=== PATIENT | female | born 1970 | race Caucasian/White ===

== ENCOUNTER 2023-09-28 11:43 | Outpatient (REF) | payer OTHER, SELFPAY | END 2023-09-28 11:44 | disposition home or self-care (01) | LOC: HO.XRAY 11:43 | PROVIDERS: PCP Internal Medicine; Visit Provider Internal Medicine | DX: S69.91XD Unspecified injury of right wrist, hand and finger(s), subsequent encounter (principal) | CPT/HCPCS: 73110 ==

== ENCOUNTER 2025-04-15 15:54 | Outpatient (AMB) | payer OTHER, SELFPAY ==
--- NOTE | 2025-04-15 15:55 | MHC.PC.OV ---
Vital Signs 04/15/25 15:58 04/15/25 15:58 04/15/25 16:34 Height 5 ft 6 in Weight 79.379 kg BP 144/78 H 150/80 H Blood Pressure Location Lt brachial Position Sitting Respiration 17 Pulse 77 Pulse Source Pulse Oximeter Temp 97.9 F Temp Source Temporal Artery Scan Pulse Oximetry (%) 98 Oxygen Delivery Method Room Air Intake Visit Reasons: Shingles-AFC Urgent care Veterinary Laboratory Technician Required: No Accompanied by: Self / Same As Patient Allergies No Known Allergies Allergy (Verified 04/15/25 15:55) Medication List - Last Reconciled 04/15/25 by AURA Aparicio buspirone 7.5 mg PO BID escitalopram oxalate 20 mg PO BEDTIME lamotrigine 150 mg PO BID lisinopril 10 mg PO DAILY lorazepam 0.5 - 1 mg PO BID PRN trazodone 25 - 50 mg PO BEDTIME PRN valacyclovir 1,000 mg PO TID HPI HPI Comments History of Present Illness Details 54-year-old male with history of bipolar disorder, history of cervical cancer presents to the office today for follow-up on herpes zoster as well as annual physical exam. She currently lives at home with her and daughter and feels safe there. She does follow a healthy diet and exercises with brisk walking. Has lost 35 lb intentionally. She denies any alcohol use, history of cigarette smoking, illicit drug use or marijuana use. 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 Bipolar vaobdbzo-WUR-9 score 0 and guilherme 7 score 0. Follows with Psychiatry as well as counselor. Stable on BuSpar, Lexapro, lamotrigine, trazodone, and lorazepam as needed. Denies any nicholas or depressive symptoms. No SI/HI. History of cervical cancer-s/p cone. Does not have tool maker established anymore Concerns: Diagnosed with herpes zoster yesterday at urgent care. Developed a rash about 1 week ago affecting the right side of the face not including V1 distribution extending to the scalp and neck. She does also experience some tingling in the right upper extremity. There is sharp stabbing sensations along the rash. No prior history of shingles. Has not been vaccinated. Was prescribed Valtrex at the urgent care but has not yet started this. She was not given anything for pain management but states the pain is so severe at times it causes her to cry. Right posterior knee pain-ongoing for some time. Pain is primarily when she is kneeling or seated cross legged. No pain with ambulation or on stairs. Denies any weakness or injury. Reports ice helps. Last menstrual period was 14 months ago. However last week, developed heavy bleeding which she has gotten in the past with intercourse but then occurred last week without any trigger. Health maintenance: Overdue for mammogram Overdue for Pap smear-[facility] but has not established with other tool maker Due for colonoscopy Past medical, social, family, surgical history reviewed ROS: General: No fevers, malaise, unintentional weight loss HEENT: No blurred vision, diplopia. No sore throat, nasal congestion, rhinorrhea, sinus pain, ear pain. No hearing loss Neck - no adenopathy Cardiovascular: No chest pain, palpitations, or leg edema Respiratory: No shortness of breath, wheezing, cough Breast: No pain, palpable lumps, nipple inversion GI: No dysphagia, odynophagia, globus sensation. No abdominal pain, nausea, vomiting, diarrhea, constipation, melena, hematochezia : No dysuria, hematuria, increased urinary frequency, decreased urinary output. PATTERN PAINTER: See HPI MSK: No myalgia, back pain. See HPI Neuro: No headaches, weakness, paresthesias Psych: no depression/anxiery. No AH/VH. No SI/HI Skin: See HPI EXAM: Constitutional - Awake and Alert, No apparent distress Eyes - PERRLA, EOMI. Anicteric Ears - external ears normal, canals clear, TMs intact and pearly crandall with good cone of light Nose- septum midline, nares clear, no sinus tenderness Mouth/throat- mucosa moist, tongue and uvula midline, no erythema/edema or tonsillar adenopathy. Neck-trachea midline, thyroid symmetric without palpable nodules, no adenopathy Cardiovascular - S1S2, RRR, No edema Respiratory - Normal lung expansion, Normal respiratory effort, No respiratory distress, CTA bilaterally Gastrointestinal - NT / ND; +BS; No rebound or guarding - No CVA tenderness Extremities - no calf tenderness bilaterally, no swelling Musculoskeletal - Normal inspection, normal ROM Skin - Warm/Dry. Vesicular rash on erythematous base along the V3 distribution of the trigeminal nerve Neurological - Alert & oriented x3, CN II-XII in tact, 5/5 strength BUE and BLE, 2+ patellar reflexes, sensation intact Psychological - Appropriate affect [facility] Medical History (Updated 04/15/25 @ 17:07 by AURA Aparicio) Hypertension Post-menopausal bleeding Hx of cervical cancer Solitary bone cyst of pelvis Herpes zoster Bipolar 2 disorder Surgical History (Updated 04/15/25 @ 16:13 by AURA Aparicio) S/P tubal ligation S/P tonsillectomy Family History (Updated 04/15/25 @ 16:21 by AURA Aparicio) Maternal Grandmother Ovarian cancer Stroke Paternal Grandfather CAD (coronary artery disease) Paternal Grandmother CHD (congenital heart disease) Questionnaire PHQ-9 Over the last 2 weeks, how often have you been bothered by any of the following problems? 1. Little interest or pleasure in doing things: not at all 2. Feeling down, depressed, or hopeless: not at all 3. Trouble falling or staying asleep, or sleeping too much: not at all 4. Feeling tired or having little energy: not at all 5. Poor appetite or overeating: not at all 6. Feeling bad about yourself - or that you are a failure or have let yourself or your family down: not at all 7. Trouble concentrating on things, such as reading the newspaper or watching television: not at all 8. Moving or speaking so slowly that other people could have noticed. Or the opposite - being so fidgety or restless that you have been moving around a lot more than usual: not at all 9. Thoughts that you would be better off or of hurting yourself in some way: not at all Total score: 0 Depression Screening Interpretation: Negative Depression Screening Done: Yes 78721 - PHQ-9 Billing: Yes Source: Developed by Drs. Sixto Hernandez, Julia Newby, Ari Hahn and colleagues, with an educational kieran from [employer]. GUILHERME-7 AMB Questionnaire GUILHERME-7 Feeling nervous, anxious, or on edge: 0 = Not at all Not being able to stop or control worryin = Not at all Worrying too much about different things: 0 = Not at all Trouble relaxin = Nearly every day Being so restless that it is hard to sit still: 0 = Not at all Becoming easily annoyed or irritable: 0 = Not at all Feeling afraid as if something awful might happen: 0 = Not at all Total GUILHERME-7 score (0-4 normal; 5-9 mild; 10-14 moderate; 15-21 severe): 3 Source: Developed by Drs. Sixot Hernandez, Julia Newby, Ari Hahn and colleagues, with an educational kieran from [employer]. GUILHERME-7 Assessment Billing GUILHERME-7 Assessment Tool: GUILHERME-7 Assessment 10080 Physical exam (Primary Care) Vital Signs: Last Vital Signs Temp 97.9 F 04/15/25 15:58 Pulse 77 04/15/25 15:58 Resp 17 04/15/25 15:58 BP 150/80 H 04/15/25 16:34 Pulse Ox 98 04/15/25 15:58 Oxygen Delivery Method Room Air 04/15/25 15:58 PHQ-9: PHQ-9 Score PHQ-9: Total score 0 04/15/25 16:26 Depression Screening Interpretation: Negative Coding Level of Care Code Est Pt Level 4 (20268) New Pt Prev Care 40-64y(31531) Diagnoses Routine medical exam Z00.00 Herpes zoster B02.9 Posterior right knee pain M25.561 Post-menopausal bleeding N95.0 Bipolar 2 disorder F31.81 Hypertension I10 Additional Codes GUILHERME-7 Assessment Billing - GUILHERME-7 Assessment Tool: GUILHERME-7 Assessment 46141 ([id number]) PHQ-9 - 95380 - PHQ-9 Billing: Yes ([id number]) Assessment & Plan Assessment & Plan (1) Routine medical exam: Code(s): Z00.00 - Encounter for general adult medical examination without abnormal findings Plan: 54-year-old female presenting for annual physical exam. Has not been evaluated in several years. New patient to the office. Plan as below (2) Herpes zoster: Code(s): B02.9 - Zoster without complications Category: Medical Plan: Urgent care notes reviewed. Advised to initiate Valtrex 1000 mg t.i.d.. She is also given prednisone taper as well as gabapentin 300 mg at night. She can also use tramadol as needed for breakthrough pain. Advised to get Shingrix (3) Posterior right knee pain: Code(s): M25.561 - Pain in right knee Category: Medical Plan: X-ray of the right knee is ordered. She is referred to Orthopedic surgery for further evaluation and management. Can use ibuprofen as needed for pain as well as ice. (4) Post-menopausal bleeding: Code(s): N95.0 - Postmenopausal bleeding Category: Medical Plan: Referred to tool maker for further evaluation and management as patient's last menstrual period was 14 months ago and should not still be experiencing bleeding at this time. She is also referred for routine screenings given cancer history. Will evaluate CBC given bleeding (5) Bipolar 2 disorder: Code(s): F31.81 - Bipolar II disorder Category: Medical Plan: Stable. Continue following with Psychiatry and continue medications as ordered (6) Hypertension: Code(s): I10 - Essential (primary) hypertension Category: Medical Plan: New onset. Prescribed lisinopril 10 mg daily. Educated on dosing and side effects. Follow-up in the office in 2-3 weeks for blood pressure recheck. Low-sodium diet Plan Routine screening labs as ordered below Referred for screening mammogram, Pap smear, colonoscopy Continue following for annual skin exams and use sun protection Annual eye exams Wear seat belt in car Recommend regular exercise and healthy diet Orders: Orders Basic Metabolic Panel Today Z00.00 - Encounter for general adult medical examination without abnormal findings Complete Blood Count Auto Diff Today Z00.00 - Encounter for general adult medical examination without abnormal findings Liver Panel Today Z00.00 - Encounter for general adult medical examination without abnormal findings Vitamin D 25-OH Total Today Z00.00 - Encounter for general adult medical examination without abnormal findings XR knee RT 3V Today M25.561 - Pain in right knee MM tomosynthesis screening BI Today Z12.31 - Encounter for screening mammogram for malignant neoplasm of breast Hemoglobin A1c Today Z00.00 - Encounter for general adult medical examination without abnormal findings Lipid Panel Today Z00.00 - Encounter for general adult medical examination without abnormal findings Referrals Gastroenterology Referral Z12.11 - Encounter for screening for malignant neoplasm of colon AUTOMOTIVE MACHINIST Referral N95.0 - Postmenopausal bleeding Orthopedics Referral M25.561 - Pain in right knee Medications: New lisinopril 10 mg PO DAILY 90 tabs 1RF prednisone see taper instructions; 40 mg Daily x3 days, 30 mg daily x3 days, 20 mg daily x3 days, 10 mg daily x3 days 10 mg PO DIRECTED 30 tabs 0RF gabapentin 300 mg PO BEDTIME 14 caps 0RF tramadol 50 mg PO Q8H PRN 30 tabs 0RF pain
[2025-04-15 15:58] VITALS: BP 144/78; PULSE 77; RESP 17; TEMP 36.6; O2SAT 98
--- OUTSIDE RECORDS SUMMARY | 2025-04-15 16:08 | XMS_ITS | Patient Health Record ---
Author Organization [facility] Address [address] [place] [address] Care Team Providers Care Mileage Clerk Name Role Phone STEVAN VELEZ Unavailable [phone] Reason For Referral No Information Plan Of Treatment Next Appt Details Provider Name:Yael douglas, 09/10/2025 09:20:00 AM, [address], [address], [place], [address], Insurance Providers Payer Name Payer Address Payer Phone Subscriber Number Group Number Insured Name Patient Relationship to Insured Coverage Start Date Coverage End Date [facility] [address] [facility] [place] [id number] [phone] BRETT JEAN Self - patient is the insured
[2025-04-15 16:34] VITALS: BP 150/80
== END 2025-04-15 16:36 | disposition home or self-care (01) ==
LOC: HO.HMCHD 15:54
PROVIDERS: PCP Physician Assistant; Visit Provider Physician Assistant
DX: Z00.00 Encounter for general adult medical examination without abnormal findings (principal); B02.9 Zoster without complications; F31.81 Bipolar II disorder; M25.561 Pain in right knee; N95.0 Postmenopausal bleeding; I10 Essential (primary) hypertension

== ENCOUNTER → 2025-04-15 15:54 | Outpatient (BNVA) | payer OTHER, SELFPAY | PROVIDERS: PCP Internal Medicine; Visit Provider Physician Assistant | DX: Z00.00 Encounter for general adult medical examination without abnormal findings (principal); B02.9 Zoster without complications; M25.561 Pain in right knee; N95.0 Postmenopausal bleeding; F31.81 Bipolar II disorder; I10 Essential (primary) hypertension | CPT/HCPCS: 96127 ==

== ENCOUNTER 2025-05-06 14:23 | Outpatient (REF) | payer OTHER, SELFPAY | END 2025-05-06 14:24 | disposition home or self-care (01) | LOC: HO.LNP 14:23 | PROVIDERS: PCP Physician Assistant; Visit Provider Obstetrics & Gynecology | DX: N84.1 Polyp of cervix uteri (principal); N95.0 Postmenopausal bleeding; Z12.31 Encounter for screening mammogram for malignant neoplasm of breast; Z11.51 Encounter for screening for human papillomavirus (HPV); Z98.51 Tubal ligation status | CPT/HCPCS: 57500; 87626; 88175; 88305 ==

== ENCOUNTER 2025-05-06 14:23 | Outpatient (AMB) | payer OTHER, SELFPAY ==
[2025-05-06 14:27] VITALS: BP 144/88; BMI 28.4
--- NOTE | 2025-05-06 14:27 | MHC.OFFVIS ---
Vital Signs 05/06/25 14:27 Height 5 ft 6 in Weight 176 lb BMI 28.4 BP 144/88 H Intake Visit Reasons: PMB Treasury Consultant Required: No Supervisor Sterile Processing: Supervisor Sterile Processing Present (justino) Accompanied by: Self / Same As Patient Allergies No Known Allergies Allergy (Verified 05/06/25 14:28) HPI Comments Details: Presenting with 3 episodes of postmenopausal bleeding the 1st 1 was post coital followed by 2 separate episode not related to coitus. Last Pap smear in 08/21 was negative Last mammogram was 16 years ago was negative no records available [facility] Medical History (Updated 05/06/25 @ 14:55 by Amos Anders MD) Hypertension Post-menopausal bleeding Hx of cervical cancer Solitary bone cyst of pelvis Herpes zoster Bipolar 2 disorder Surgical History (Updated 05/06/25 @ 14:55 by Amos Anders MD) History of loop electrical excision procedure (LEEP) S/P tubal ligation S/P tonsillectomy Family History Maternal Grandmother Ovarian cancer Stroke Hypertension Paternal Grandfather CAD (coronary artery disease) Paternal Grandmother CHD (congenital heart disease) Mother Hypertension Social History Household Members: Spouse and Children Housing: House Alcohol intake: current Comment: socially Patient Tobacco Use Status: Never used Tobacco service: No Current occupational status: employed Current occupation: [employer] Sexually active: Yes Sexual orientation: Straight/Heterosexual Gender identity: Female Female Reproductive History Menstrual Age of Menarche: 12 Total pregnancies: 3 Full term: 2 Premature: 2 Number of Living Children: 2 Ab induced: 1 History of abnormal pap smear: Yes (2004) History of abnormal mammogram: No Review of Systems Const All systems reviewed & are unremarkable except as noted in HPI and below Card Reports as per HPI Resp Reports as per HPI GI Reports as per HPI and Reports no additional complaints Reports as per HPI Physical Exam Vital Signs: Last Vital Signs BP 144/88 H 05/06/25 14:27 BMI result Body Mass Index 28.4 Const General: cooperative, healthy appearing and comfortable Chest Chest palpation & inspection: normal inspection of the chest and normal palpation of entire chest wall Breast/axilla inspection: normal inspection of the breasts and normal inspection of the axillae Breast/axilla palpation: normal palpation of the breasts, normal palpation of the axillae and no axillary lymphadenopathy Resp Effort & Inspection: normal respiratory effort Auscultation: clear to auscultation bilaterally Percussion: percussion normal Cardio Palpation: normal PMI Rate: regular rate Rhythm: regular rhythm Heart sounds: no murmurs and no rubs Peripheral pulses: Peripheral pulses 2+ throughout GI Inspection: Yes normal to inspection Palpation (GI): Soft to palpation, nontender, no guarding, not rigid and No hepatosplenomegaly present Percussion: Yes normal to percussion Auscultation: normal bowel sounds Rectal Exam - Female: deferred General: Yes bladder normal to palpation External Female Exam: No lesion Speculum Exam - Vagina: normal appearance of the vagina, normal palpation, normal vaginal discharge and not erythematous Speculum Exam - Cervix: normal palpation and Other cervical findings present (Abnormal will see cervical lesion) Bimanual exam- vagina & uterus: normal bimanual exam, normal palpation, uterine size normal, bladder normal to palpation, consistency normal and normal palpation Bimanual Exam- Adnexa, other: normal adnexae, no masses and no tenderness Office Procedures GRANITE COUNTERTOP INSTALLER Biopsy Endocervical polypectomy Before the procedure was started, discussed with the patient the procedure technique, alternatives & all the risks associated with the procedure including but not limited to: bleeding , infection, uterine perforation, injury to bladder, vessels, bowels, possible need for transfusion with all its risks, and others. All questions were answered, the patient verbalized understanding and signed the consent. Urine test done in the office was negative Using a long Anna Clamp the endocervical polyp was grasped and twisted around till it came off, hemostasis was secured using pressure. The patient tolerated the procedure well. Instructions were given to the patient to call if bleeding, temp>100.4 occur. The patient verbalized understanding and agreed with the plan. Cervical biopsy: Before beginning the procedure, I conducted comprehensive counseling with the patient. We thoroughly discussed the procedure itself, including its details, alternatives, and all associated risks. This included but not limited to the following complications such as bleeding, infection, and injury to the vagina, bladder, and vessels, as well as the potential need for transfusion with all its associated risks. Subsequently, the patient sign the consent. Procedure: During the procedure, the following steps were performed: A speculum was inserted, and acetic acid was applied. Cervical biopsies were obtained from the posterior abnormal cervical lesion Hemostasis was achieved using Monsel solution, and the patient tolerated the procedure well. Post-Procedure Instructions: The patient was advised to promptly contact the office or the after hours answering service or go to the emergency room if experiencing a temperature exceeding 100.4?F, abdominal pain, nausea/vomiting, or bleeding. Additionally, the patient was instructed to abstain from vaginal intercourse and bathtub use. The patient confirmed understanding of these instructions. Discharge Instructions: The patient was instructed to schedule a follow-up appointment in 2 weeks for further evaluation and management. Please note that this note was generated using a voice recognition program, and errors may have occurred during tool filer. This note was generated with a voice recognition program. Some errors may have been overlooked during the review of this note. Sometimes these errors may affect the content or meaning of a given sentence. 88684-Nblqol of Cervix Procedure code (CPT) selection complete Assessment & Plan Assessment & Plan (1) Post-menopausal bleeding: Code(s): N95.0 - Postmenopausal bleeding Category: Medical Plan: Discussed with the patient the differential diagnosis of post menopausal bleeding with normal pelvic exam including but not limited to, endometrial hyperplasia, cancer, polyps and other causes; co testing done, recommended ultrasound to measure the endometrial stripe; discussed with the patient that if the endometrial thickness is 4 mm or less the negative predictive value of endometrial pathology is 99%, otherwise If endometrial thickness is more than 4 mm will proceed with endometrial sampling versus hysteroscopy D&C polypectomy depending on the ultrasound findings. Instructed the patient to schedule an ultrasound with a follow-up appointment in 2 weeks. All questions answered, the patient verbalized understanding and agreed with the plan. This note was generated with a voice recognition program. Some errors may have been overlooked during the review of this note. Sometimes these errors may affect the content or meaning of a given sentence. (2) Endocervical polyp: Code(s): N84.1 - Polyp of cervix uteri Category: Medical Plan: Discussed with the patient the finding on pelvic exam showing endocervical polyp, endocervical polypectomy done, see procedure note (3) Lesion of cervix: Code(s): N88.9 - Noninflammatory disorder of cervix uteri, unspecified Category: Medical Plan: Discussed with the patient the finding on pelvic exam posterior cervical lesion, recommended biopsy, cervical biopsy done, see procedure note Orders: Orders AMB GRANITE COUNTERTOP INSTALLER Biopsy Today N84.1 - Polyp of cervix uteri, N88.9 - Noninflammatory disorder of cervix uteri, unspecified MM tomosynthesis screening BI Today Z12.31 - Encounter for screening mammogram for malignant neoplasm of breast US pelvic and transvaginal Today N95.0 - Postmenopausal bleeding Coding Level of Care Code New Pt Level 3 (72870) Procedure Only Diagnoses Post-menopausal bleeding N95.0 Endocervical polyp N84.1 Lesion of cervix N88.9 CPT Codes GRANITE COUNTERTOP INSTALLER Biopsy - CPT: 49571-Dljyep of Cervix ([id number])
--- OUTSIDE RECORDS SUMMARY | 2025-05-06 15:02 | XMS_ITS | Patient Health Record ---
Author Organization Total [facility] Address [address] [place] [address] Care Team Providers Care Administration Clerk Name Role Phone STEVAN VELEZ Unavailable [phone] Reason For Referral No Information Plan Of Treatment Next Appt Details Provider Name:Yael douglas, 09/10/2025 09:20:00 AM, [address], [address], [place], [address], Insurance Providers Payer Name Payer Address Payer Phone Subscriber Number Group Number Insured Name Patient Relationship to Insured Coverage Start Date Coverage End Date [facility] [address] [place] [id number] BRETT JEAN Self - patient is the insured
== END 2025-05-06 15:00 | disposition home or self-care (01) ==
LOC: HO.HWS 14:24
PROVIDERS: PCP Physician Assistant; Visit Provider Obstetrics & Gynecology
DX: N95.0 Postmenopausal bleeding (principal); N84.1 Polyp of cervix uteri; N88.9 Noninflammatory disorder of cervix uteri, unspecified
CPT/HCPCS: 57500; 99203

== ENCOUNTER 2025-06-11 12:46 | Outpatient (REF) | payer OTHER, SELFPAY ==
--- NOTE | ~2025-06-11 | US_ITS ---
CLINICAL HISTORY: N95.0 - Postmenopausal bleeding Ultrasound of the female pelvis Comparison: None provided Technique: Grayscale ultrasound with assistance of color Doppler. Transabdominal scanning performed for overall anatomy. Transvaginal scanning performed for better anatomic delineation. Findings: Anteverted, mildly atrophic uterus measures 6.2 x 3.9 x 3.8 cm. Mildly heterogeneous myometrium, intramural fibroids in the anterior uterine body 1.2 x 0.8 x 1.4 cm, right posterior fundus 1.4 x 1.1 x 1.7 cm. Thin endometrium, 3 mm in thickness. Small nabothian cyst. Right ovary is normal in size for the age, 1.8 x 1.2 x 1.2 cm. Simple cyst 1.5 x 1.0 x 0.9 cm. No abnormal vascular flow. Left ovary is not seen, no left adnexal mass. No free fluid. Impression: 1. Thin endometrium. 2. Small uterine fibroids. 3. Right ovarian simple cyst 1.5 cm, benign inconsequential finding. 4. Nonvisualization of the left ovary. This document has been electronically signed by: Brea Geiger MD on 06/12/2025 09:44:59
--- OUTSIDE RECORDS SUMMARY | 2025-06-11 15:13 | XMS_ITS | Patient Health Record ---
Author Organization Total [facility] Address [address] [place] [address] Care Team Providers Care Project Finance Analyst Name Role Phone STEVAN VELEZ Unavailable [phone] Reason For Referral No Information Plan Of Treatment Next Appt Details Provider Name:Yael douglas, 09/10/2025 09:20:00 AM, [address], [address], [place], [address], Insurance Providers Payer Name Payer Address Payer Phone Subscriber Number Group Number Insured Name Patient Relationship to Insured Coverage Start Date Coverage End Date [facility] [address] [place] [id number] BRETT JEAN Self - patient is the insured
== END 2025-06-11 12:47 | disposition home or self-care (01) ==
LOC: HO.HMGCX 12:46
PROVIDERS: PCP Physician Assistant; Visit Provider Obstetrics & Gynecology
DX: N95.0 Postmenopausal bleeding (principal)
CPT/HCPCS: 76830; 76856

== ENCOUNTER → 2025-06-11 12:50 | Outpatient (BNV) | payer OTHER, SELFPAY | PROVIDERS: PCP Physician Assistant; Visit Provider Radiology Diagnostic Radiology | DX: D25.9 Leiomyoma of uterus, unspecified (principal); N83.201 Unspecified ovarian cyst, right side; N95.0 Postmenopausal bleeding | CPT/HCPCS: 76830; 76856 ==

== ENCOUNTER 2025-06-26 12:12 | Outpatient (AMB) | payer OTHER, SELFPAY ==
--- NOTE | 2025-06-26 12:12 | MHC.OFFVIS ---
Intake Visit Reasons: Ultrasound follow up Allergies No Known Allergies Allergy (Verified 05/06/25 14:28) HPI Comments Details: The patient is schedule telehealth visit for follow-up. Last co testing, Pap was unsatisfactory/HPV negative Cervical biopsy and polypectomy pathology showed the following: A. Cervix, lesion, biopsy: - Low-grade squamous intraepithelial lesion (YUNG 1). - Background inflamed squamous and endocervical mucosa. B. Cervix, polypectomy: Inflamed cervical transformation zone polyp Pelvic ultrasound showed the following: Anteverted, mildly atrophic uterus measures 6.2 x 3.9 x 3.8 cm. Mildly heterogeneous myometrium, intramural fibroids in the anterior uterine body 1.2 x 0.8 x 1.4 cm, right posterior fundus 1.4 x 1.1 x 1.7 cm. Thin endometrium, 3 mm in thickness. Small nabothian cyst. Right ovary is normal in size for the age, 1.8 x 1.2 x 1.2 cm. Simple cyst 1.5 x 1.0 x 0.9 cm. No abnormal vascular flow. Left ovary is not seen, no left adnexal mass. No free fluid. Impression: 1. Thin endometrium. 2. Small uterine fibroids. 3. Right ovarian simple cyst 1.5 cm, benign inconsequential finding. 4. Nonvisualization of the left ovary [facility] Medical History (Updated 06/26/25 @ 12:24 by Amos Anders MD) Hypertension Post-menopausal bleeding Hx of cervical cancer Solitary bone cyst of pelvis Herpes zoster Bipolar 2 disorder Surgical History (Updated 05/06/25 @ 14:55 by Amos Anders MD) History of loop electrical excision procedure (LEEP) S/P tubal ligation S/P tonsillectomy Family History Maternal Grandmother Ovarian cancer Stroke Hypertension Paternal Grandfather CAD (coronary artery disease) Paternal Grandmother CHD (congenital heart disease) Mother Hypertension Social History Household Members: Spouse and Children Housing: House Alcohol intake: current Comment: socially Patient Tobacco Use Status: Never used Tobacco service: No Current occupational status: employed Current occupation: [employer] Sexual orientation: Straight/Heterosexual Gender identity: Female Female Reproductive History Menstrual Age of Menarche: 12 Telehealth Telehealth Telehealth Platform: [employer] Location of provider rendering services: practice address Location of patient: address on file Patient Identification confirmed using: Name, : Yes Telehealth method: video Patient verbally consented to treatment: Yes Patient verbally consented to billing insurance company: Yes Patient informed of any privacy concerns related to visit: Yes Minutes spent on Phone/Video with Pt.: 3 Assessment & Plan Assessment & Plan (1) Post-menopausal bleeding: Code(s): N95.0 - Postmenopausal bleeding Category: Medical Plan: Discussed with the patient the results the ultrasound although endometrial thickness 3 mm since the patient had multiple those episodes of bleeding recommended endometrial sampling soon to rule out endometrial pathology including endometrial hyperplasia and/or malignancy, instructions given the patient to schedule appointment for EMB (2) Unsatisfactory cervical Papanicolaou smear: Code(s): R87.615 - Unsatisfactory cytologic smear of cervix Category: Medical Plan: Pap recommended, instructions given the patient to schedule an appointment for a Pap smear in few weeks (3) Dysplasia of cervix, low grade (YUNG 1): Code(s): N87.0 - Mild cervical dysplasia Category: Medical Plan: Discussed with the patient the pathology results of the colposcopy biopsies & endocervical curettage ( mild dysplasia-YUNG 1). Discussed with the patient the sensitivity specificity, positive and negative predictive value in detecting cervical cancer in addition discussed the regression, persistence and progression rates. Recommended co-testing in 12 months, if cytology and or HPV are abnormal will proceed was colposcopy biopsy and endocervical curettage, if lesions gets worse or stays persistent for 2 years will proceed with loop electric excision procedure. Instructions given to the patient to schedule a co test appointment in 1 year. All questions answered the patient verbalized understanding. (4) Ovarian cyst: Code(s): N83.209 - Unspecified ovarian cyst, unspecified side Category: Medical Plan: Discussed with the patient the ovarian cyst by ultrasound. Discussed with the patient the Ultrasound findings, the main limitation of transvaginal ultrasonography alone as a diagnostic tool to distinguish benign from malignant masses relates to its lack of specificity and low positive predictive value for cancer. The differential diagnosis discussed with the patient includes the following but not limited to: benign and malignant gynecological and non-gynecological causes. Discussed with the patient options of treatment , including laparoscopy ovarian salpingo-oophorectomy vs. expectant management with repeat US in repeating pelvic US in 3-6 months from previous US. If the ovarian cyst is persistent larger and / or changes in Ultrasound appearance & became complex looking, will refer to gynecologic Oncology. All pros, cons, risks and benefits of each approach were discussed with the patient including but not limited to a delay in the diagnosis and treatment of ovarian cancer affecting the prognosis; The patient decided to go ahead with expectant management. All questions were answered & the patient verbalized understanding and agreed with the plan (5) Uterine myoma: Code(s): D25.9 - Leiomyoma of uterus, unspecified Category: Medical Plan: Discussed with the patient the findings on pelvic ultrasound & the risk of myosarcoma; in addition reviewed with the patient that malignancy and pre malignancy cannot be ruled out without hysterectomy for pathological evaluation ; furthermore, explained to the patient the limitation of pelvic ultrasound and endometrial biopsy in the setting. Discussed with the patient the options of treatment including expectant management versus hysterectomy; the pros and cons, risks benefits of each approach were discussed with the patient including the fact that in cases of myosarcoma, surgical treatment can lead to early diagnosis and positively affects the prognosis; after further discussion, the patient decided to proceed with expectant management. Will repeat pelvic ultrasound periodically. Instructions given to patient to call in case any of the following occurs: pressure symptoms, abnormal uterine bleeding, pelvic pain; and to schedule a six-months pelvic ultrasound (order placed) and a follow-up appointment . All questions answered, the patient verbalized understanding and agreed with the plan . I spent a total of 20 minutes reviewing the chart, talking to the patient via video and documenting in the medical record. Orders: Orders US pelvic and transvaginal 6 Months D25.9 - Leiomyoma of uterus, unspecified, N83.209 - Unspecified ovarian cyst, unspecified side Coding Level of Care Code Tele Est Pt Level 3 (88912) Diagnoses Post-menopausal bleeding N95.0 Unsatisfactory cervical Papanicolaou smear R87.615 Dysplasia of cervix, low grade (YUNG 1) N87.0 Ovarian cyst N83.209 Uterine myoma D25.9
== END 2025-06-26 12:51 | disposition home or self-care (01) ==
LOC: HO.HWS 12:12
PROVIDERS: PCP Physician Assistant; Visit Provider Obstetrics & Gynecology
DX: N95.0 Postmenopausal bleeding (principal); N87.0 Mild cervical dysplasia; N83.209 Unspecified ovarian cyst, unspecified side; D25.9 Leiomyoma of uterus, unspecified
CPT/HCPCS: 99213

== ENCOUNTER 2025-08-05 12:47 | Outpatient (AMB) | payer OTHER, SELFPAY ==
--- NOTE | 2025-08-05 12:50 | MHC.OFFVIS ---
Intake Visit Reasons: Repeat pap/EMB Conduit Mechanic: Conduit Mechanic Present Allergies No Known Allergies Allergy (Verified 08/05/25 12:53) HPI Comments Details: Presenting for repeat pad for unsatisfactory results and for endometrial biopsy for recurrent postmenopausal bleeding PFSH Medical History (Updated 08/05/25 @ 12:57 by Amos Anders MD) Hypertension Post-menopausal bleeding Hx of cervical cancer Solitary bone cyst of pelvis Herpes zoster Bipolar 2 disorder Surgical History (Updated 05/06/25 @ 14:55 by Amos Anders MD) History of loop electrical excision procedure (LEEP) S/P tubal ligation S/P tonsillectomy Family History Maternal Grandmother Ovarian cancer Stroke Hypertension Paternal Grandfather CAD (coronary artery disease) Paternal Grandmother CHD (congenital heart disease) Mother Hypertension Social History Household Members: Spouse and Children Housing: House Alcohol intake: current Comment: socially Patient Tobacco Use Status: Never used Tobacco service: No Current occupational status: employed Current occupation: [employer] Sexual orientation: Straight/Heterosexual Gender identity: Female Female Reproductive History Menstrual Age of Menarche: 12 Office Procedures Endometrial Biopsy Details: The patient was counseled regarding the indication and benefits of endometrial sampling to rule out endometrial pathology including not limited to endometrial hyperplasia or endometrial cancer and others; The alternatives (Either do nothing vs. hysteroscopy D&C) & the risks were discussed with the patient including but not limited: pain, uterine perforation, bleeding, infection, possible injury to bladder, bowel, ureter, possible need for blood transfusion with all its possible risks. The patient verbalized understanding all questions answered and signed consent. The patient was placed into the dorsal lithotomy position; a speculum was inserted in the vagina. Using aseptic technique for the procedure, the cervix was cleansed with Betadine. The anterior lip of the cervix was grasped with a single tooth tenaculum. The uterus was sounded to 7 cm with a 4 mm Pipelle was used. Tissues samples were obtained and placed in formalin, in a patient labeled container and sent to the pathology department. At the end of the procedure, there was minimal bleeding noted The patient tolerated the procedure well and was discharged in good condition with the following instructions: Nothing in the vagina until the bleeding stops. No sex until the bleeding stops, to call if any of the following occurs: fever (>100.4), flu-like symptoms, abdominal pain, heavy bleeding, four smelling vaginal discharge. The patient was instructed to schedule a Follow up appointment in 2 weeks to discuss pathology results of the biopsy and treatment options. This note was generated with a voice recognition program. Some errors may have been overlooked during the review of this note. Sometimes these errors may affect the content or meaning of a given sentence. 37958-[id number] Biopsy Assessment & Plan Assessment & Plan (1) Unsatisfactory cervical Papanicolaou smear: Code(s): R87.615 - Unsatisfactory cytologic smear of cervix Category: Medical Plan: Pap taken (2) Post-menopausal bleeding: Comment: Recurrent Code(s): N95.0 - Postmenopausal bleeding Category: Medical Plan: EMB done, see procedure note Orders: Orders AMB Endometrial Biopsy Today N95.0 - Postmenopausal bleeding Coding Level of Care Code Est Pt Level 3 (58278) Procedure Only Diagnoses Unsatisfactory cervical Papanicolaou smear R87.615 Post-menopausal bleeding N95.0 CPT Codes Endometrial Biopsy - CPT: 22695-Wfpkyoyzfoc Biopsy ([id number])
--- OUTSIDE RECORDS SUMMARY | 2025-08-05 16:07 | XMS_ITS | Patient Health Record ---
Author Organization [facility] Address [address] [place] [address] Care Team Providers Care Reservations Manager Name Role Phone STEVAN VELEZ Unavailable [phone] Reason For Referral No Information Plan Of Treatment Next Appt Details Provider Name:Yael douglas, 09/10/2025 09:20:00 AM, [address], [address], [place], [address], Insurance Providers Payer Name Payer Address Payer Phone Subscriber Number Group Number Insured Name Patient Relationship to Insured Coverage Start Date Coverage End Date [facility] [address] [place] [id number] BRETT JEAN Self - patient is the insured
== END 2025-08-05 15:02 | disposition home or self-care (01) ==
LOC: HO.HWS 12:47
PROVIDERS: PCP Physician Assistant; Visit Provider Obstetrics & Gynecology
DX: R87.615 Unsatisfactory cytologic smear of cervix (principal); N95.0 Postmenopausal bleeding
CPT/HCPCS: 58100; 99213

== ENCOUNTER 2025-08-05 12:47 | Outpatient (REF) | payer OTHER, SELFPAY | END 2025-08-05 12:48 | disposition home or self-care (01) | LOC: HO.LNP 12:47 | PROVIDERS: PCP Physician Assistant; Visit Provider Obstetrics & Gynecology | DX: N95.0 Postmenopausal bleeding (principal); N87.0 Mild cervical dysplasia; Z98.51 Tubal ligation status; Z11.51 Encounter for screening for human papillomavirus (HPV) | CPT/HCPCS: 58100; 87626; 88175; 88305 ==

== ENCOUNTER 2025-08-21 12:54 | Outpatient (REF) | payer OTHER, SELFPAY | END 2025-08-21 12:55 | disposition home or self-care (01) | LOC: HO.LNP 12:54 | PROVIDERS: PCP Physician Assistant; Visit Provider Obstetrics & Gynecology | DX: R87.610 Atypical squamous cells of undetermined significance on cytologic smear of cervix (ASC-US) (principal); N95.0 Postmenopausal bleeding | CPT/HCPCS: 57454; 88305 ==

== ENCOUNTER 2025-08-21 12:54 | Outpatient (AMB) | payer OTHER, SELFPAY ==
[2025-08-21 12:55] VITALS: BP 146/92; BMI 28.4
--- NOTE | 2025-08-21 12:55 | A.OFFVIS_ITS ---
Vital Signs 08/21/25 12:55 Height 5 ft 6 in Weight 176 lb BMI 28.4 BP 146/92 H Intake Visit Reasons: EMB results/need colpo Enterostomal Nurse Required: No Information Interpreted: non-clinical & clinical Computerized Machine Fabric Cutter: Computerized Machine Fabric Cutter Present (Sarah ROMERO) Accompanied by: Self / Same As Patient Allergies No Known Allergies Allergy (Verified 08/21/25 12:56) Post menopausal: Yes HPI Comments Details: Presenting for abnormal Pap smear showing the following: General Category: Epithelial cell abnormality. Adequacy: Transformation zone/endocervical component present. Interpretation: Atypical squamous cells of undetermined significance, rare. Acute inflammation. HPV High Risk: Negative HPV Genotyping 16: Negative HPV Genotyping 18: Negative Last EMB done recently, the pathology showed the following: Strips of inactive endometrium, tubal metaplasia and blood; negative for atypia, hyperplasia or malignancy PFS Medical History (Updated 08/21/25 @ 13:03 by Amos Anders MD) Hypertension Post-menopausal bleeding Hx of cervical cancer Solitary bone cyst of pelvis Herpes zoster Bipolar 2 disorder Surgical History (Updated 05/06/25 @ 14:55 by Amos Anders MD) History of loop electrical excision procedure (LEEP) S/P tubal ligation S/P tonsillectomy Family History Maternal Grandmother Ovarian cancer Stroke Hypertension Paternal Grandfather CAD (coronary artery disease) Paternal Grandmother CHD (congenital heart disease) Mother Hypertension Social History Household Members: Spouse and Children Housing: House Alcohol intake: current Comment: socially Patient Tobacco Use Status: Never used Tobacco service: No Current occupational status: employed Current occupation: [employer] Sexual orientation: Straight/Heterosexual Gender identity: Female Female Reproductive History Menstrual Age of Menarche: 12 Review of Systems Const All systems reviewed & are unremarkable except as noted in HPI and below Reports as per HPI and Reports no additional complaints GI Reports no additional complaints Reports no additional complaints Physical Exam Vital Signs: Last Vital Signs BP 146/92 H 08/21/25 12:55 BMI result Body Mass Index 28.4 Office Procedures Colposcopy Colposcopy: Pre-Procedure Counseling: Before beginning the procedure, I conducted comprehensive counseling with the patient. We thoroughly discussed the procedure itself, including its details, alternatives, and all associated risks. This included but not limited to the following complications such as bleeding, infection, and injury to the vagina, bladder, and vessels, as well as the potential need for transfusion with all its associated risks. Subsequently, the patient sign the consent. Pap smear result: ASCUS HPV negative. Procedure: During the procedure, the following steps were performed: A speculum was inserted, and acetic acid was applied. Colposcopy was conducted, allowing visualization of the transformation zone. Acetowhite lesions were identified at the 4+ 6+ 12 o'clock position. Cervical biopsies were obtained from the4+ 6+ 12 o'clock position, followed by an endocervical curettage (ECC). Vaginoscopy of the upper vagina revealed no evidence of aceto-white lesions. Hemostasis was achieved using Monsel solution, and the patient tolerated the procedure well. Post-Procedure Instructions: The patient was advised to promptly contact the office or the after hours answering service or go to the emergency room if experiencing a temperature exceeding 100.4?F, abdominal pain, nausea/vomiting, or bleeding. Additionally, the patient was instructed to abstain from vaginal intercourse and bathtub use. The patient confirmed understanding of these instructions. Discharge Instructions: The patient was instructed to schedule a follow-up appointment in 2 weeks for further evaluation and management. Please note that this note was generated using a voice recognition program, and errors may have occurred during bluing oven tender. 33021-Mrzxppbut of cervix including upper vagina with biopsy and ECC Procedure code (CPT) selection complete Assessment & Plan Assessment & Plan (1) Post-menopausal bleeding: Comment: Recurrent Code(s): N95.0 - Postmenopausal bleeding Category: Medical Plan: Discussed with the patient the results of the endometrial biopsy. Discussed with the patient the sensitivity, specificity, positive and negative predictive value, of endometrial biopsy in detecting endometrial pathology including but not limited to endometrial hyperplasia, cancer and other pathology; instructed the patient to call in case vaginal bleeding recurs, the next step will be to proceed with a diagnostic hysteroscopy/D&C for further endometrial sampling evaluation to rule out endometrial pathology. All questions answered and the patient verbalized understanding and agreed with the plan. (2) ASCUS of cervix with negative high risk HPV: Code(s): R87.610 - Atypical squamous cells of undetermined significance on cytologic smear of cervix (ASC-US) Category: Medical Plan: Discussed with the patient the result of her abnormal pap, its significance, risk of progression, persistence, and regression. the false positive/negative rate of a Pap smear as a screening test in detecting cervical cancer and the indication for a diagnostic test -colposcopy, biopsy, endocervical curettage. The patient verbalized understanding and agreed with the plan, all questions answered. Colposcopy, biopsy /ECC done, see procedure note Orders: Orders AMB Colposcopy Today R87.610 - Atypical squamous cells of undetermined significance on cytologic smear of cervix (ASC-US) Coding Level of Care Code Est Pt Level 3 (28124) Procedure Only Diagnoses Post-menopausal bleeding N95.0 ASCUS of cervix with negative high risk HPV R87.610 CPT Codes Colposcopy - CPT: 70197-Afwmuggou of cervix including upper vagina with biopsy and ECC ([id number])
--- OUTSIDE RECORDS SUMMARY | 2025-08-21 16:02 | XMS_ITS | Patient Health Record ---
Author Organization [facility] Address [address] [place] [address] Care Team Providers Care Office Services Assistant Name Role Phone STEVAN VELEZ Unavailable [phone] Reason For Referral No Information Plan Of Treatment Next Appt Details Provider Name:Yael douglas, 09/10/2025 09:20:00 AM, [address], [address], [place], [address], Insurance Providers Payer Name Payer Address Payer Phone Subscriber Number Group Number Insured Name Patient Relationship to Insured Coverage Start Date Coverage End Date [facility] [address] [place] [id number] BRETT JEAN Self - patient is the insured
== END 2025-08-21 14:20 | disposition home or self-care (01) ==
LOC: HO.HWS 12:54
PROVIDERS: PCP Physician Assistant; Visit Provider Obstetrics & Gynecology
DX: N95.0 Postmenopausal bleeding (principal); R87.610 Atypical squamous cells of undetermined significance on cytologic smear of cervix (ASC-US)
CPT/HCPCS: 57454; 99213

== ENCOUNTER 2025-09-10 11:41 | Outpatient (AMB) | payer OTHER, SELFPAY ==
--- NOTE | 2025-09-10 11:41 | MHC.OFFVIS ---
Intake Visit Reasons: colpo results Candy Polisher Required: No Information Interpreted: non-clinical & clinical Allergies No Known Allergies Allergy (Verified 09/10/25 11:42) Post menopausal: Yes HPI Comments Details: Presenting post colpo for follow-up. The patient is doing well with no complaints. The pathology showed the following: A. Endocervix, curettage: - Low-grade squamous intraepithelial lesion (YUNG 1). - No endocervical epithelium identified. B. Cervix, 4 o'clock, biopsy: - Low-grade squamous intraepithelial lesion (YUNG 1). - Endocervical epithelium within normal limits. C. Cervix, 6 o'clock, biopsy: Inflamed squamous and endocervical mucosa with reactive changes. D. Cervix, 12 o'clock, biopsy: - Low-grade squamous intraepithelial lesion (YUNG 1). - Endocervical epithelium within normal limits. COMMENT: The findings are concordant with the patient's recent Pap/cytology specimen ([id number]; ASCUS with negative HPV) - slide reviewed In 04/28 the patient had a cervical biopsy for a cervical lesion pathology came back YUNG 1, Pap smear at the time was unsatisfactory, HPV negative, repeat Pap smear 08/02 came back as ASCUS HPV negative [facility] Medical History Hypertension Post-menopausal bleeding Hx of cervical cancer Solitary bone cyst of pelvis Herpes zoster Bipolar 2 disorder Surgical History History of loop electrical excision procedure (LEEP) S/P tubal ligation S/P tonsillectomy Family History Maternal Grandmother Ovarian cancer Stroke Hypertension Paternal Grandfather CAD (coronary artery disease) Paternal Grandmother CHD (congenital heart disease) Mother Hypertension Social History Household Members: Spouse and Children Housing: House Alcohol intake: current Comment: socially Patient Tobacco Use Status: Never used Tobacco service: No Current occupational status: employed Current occupation: [employer] Sexual orientation: Straight/Heterosexual Gender identity: Female Female Reproductive History Menstrual Age of Menarche: 12 Review of Systems Const All systems reviewed & are unremarkable except as noted in HPI and below Reports as per HPI and Reports no additional complaints GI Reports no additional complaints Reports no additional complaints Telehealth Telehealth Telehealth Platform: [facility] Location of provider rendering services: practice address Location of patient: address on file Patient Identification confirmed using: Name, : Yes Telehealth method: video Patient verbally consented to treatment: Yes Patient verbally consented to billing insurance company: Yes Patient informed of any privacy concerns related to visit: Yes Minutes spent on Phone/Video with Pt.: 3 Assessment & Plan Assessment & Plan (1) Dysplasia of cervix, low grade (YUNG 1): Code(s): N87.0 - Mild cervical dysplasia Category: Medical Plan: Discussed with the patient the pathology results of the colposcopy biopsies & endocervical curettage ( mild dysplasia-YUNG 1). Discussed with the patient the sensitivity specificity, positive and negative predictive value in detecting cervical cancer in addition discussed the regression, persistence and progression rates. Recommended co-testing in 12 months, if cytology and or HPV are abnormal will proceed was colposcopy biopsy and endocervical curettage, if lesions gets worse or stays persistent for 2 years will proceed with loop electric excision procedure. Instructions given to the patient to schedule a co test appointment in 1 year. All questions answered the patient verbalized understanding. I spent a total of 20 minutes reviewing the chart, talking to the patient via video and documenting in the medical record. Coding Level of Care Code Tele Est Pt Level 3 (63750) Diagnoses Dysplasia of cervix, low grade (YUNG 1) N87.0
--- OUTSIDE RECORDS SUMMARY | 2025-09-10 14:12 | XMS_ITS | Patient Health Record ---
Author Organization [facility] Address [address] [place] [address] Care Team Providers Care Arcade Attendant Name Role Phone Yael Good Unavailable [phone] Reason For Referral No Information Plan Of Treatment No Information Insurance Providers Payer Name Payer Address Payer Phone Subscriber Number Group Number Insured Name Patient Relationship to Insured Coverage Start Date Coverage End Date [facility] [address] [place] [id number] BRETT JEAN Self - patient is the insured
== END 2025-09-10 12:31 | disposition home or self-care (01) ==
LOC: HO.HWS 11:41
PROVIDERS: PCP Physician Assistant; Visit Provider Obstetrics & Gynecology
DX: N87.0 Mild cervical dysplasia (principal)
CPT/HCPCS: 99213